=== PATIENT | female | born 1975 | race Caucasian/White ===

== ENCOUNTER 2023-01-17 11:46 | Emergency (ER) | payer OTHER ==
[~2023-01-17 11:46] MED LIST: Iopamidol-370 76% 500 ML MDV (1 ML CHARGE) ONE
[2023-01-17] MEDS ORDERED: Acetaminophen 500 MG TAB ONE (12:37)
[2023-01-17 13:14] LABS: #Basophils 0.1 thou/uL (0.0-0.2); #Monocytes 0.9 thou/uL (0.11-0.59); #Neutrophils 10.9 thou/uL (1.40-6.50); %Basophils 0.6 % (0.0-1.0); %Eosinophils 0.3 % (0.0-10.0); %Lymphocytes 20.2 % (21.0-51.0); %Monocytes 5.7 % (0.0-10.0); %Neutrophils 72.7 % (42.0-75.0); Hematocrit 43.9 % (36.0-47.0); Hemoglobin 14.8 g/dL (12.0-16.0); Mean Corpuscular HGB CONC 33.7 g/dL (32.0-36.0); Mean Corpuscular Hemoglobin 31.6 pg (27.0-31.0); Mean Corpuscular Volume 93.6 fl (78.0-98.0); Platelet Count 282 10x3/uL (130-400); RBC Distribution Width 12.7 % (11.5-14.5); Red Blood Cell (RBC) Count 4.69 mill/uL (4.20-5.40)
[2023-01-17 13:39] LABS: ALT (SGPT) 22 U/L (8-55); AST (SGOT) 21 U/L (5-34); Albumin 4.2 g/dL (3.5-5.0); Alkaline Phosphatase 76 U/L (40-110); Anion Gap 13 mmol/L (10-20); BUN (Urea Nitrogen) 13 mg/dL (7.0-18.7); Bilirubin, Total 0.5 mg/dL (0.2-1.2); Calc. Creatinine Clearance 0 mL/min (70-130); Calcium 9.3 mg/dL (7.8-10.44); Carbon Dioxide 24 mmol/L (22-29); Chloride 107 mmol/L (98-107); Estimated GFR 90; Globulin 2.4 g/dL (2.4-3.5); Glucose 91 mg/dL (70-105); Potassium 4.1 mmol/L (3.5-5.1); Protein, Total 6.6 g/dL (6.0-8.3); Sodium 140 mmol/L (136-145)
[2023-01-17 13:42] LABS: Troponin I Less than 0.010 ng/mL (< 0.028)
== END 2023-01-17 16:10 | disposition home or self-care (01) ==
LOC: ERS 11:46
DX: S40.812A Abrasion of left upper arm, initial encounter (principal); S37.81 Injury of adrenal gland; R07.2 Precordial pain; F17.210 Nicotine dependence, cigarettes, uncomplicated; V44.5XXA Car driver injured in collision with heavy transport vehicle or bus in traffic accident, initial encounter
CPT/HCPCS: 70450; 71260; 72125; 74177; 80053; 84484; 85025; 93005; Q9967